=== PATIENT | female | born 1995 ===

== ENCOUNTER 2021-09-30 15:21 | Outpatient (CLI) | payer OTHER | END 2021-09-30 16:30 | disposition home or self-care (01) | LOC: PRENATAL 15:21 | PROVIDERS: ATTEND Obstetrics & Gynecology Maternal & Fetal Medicine | DX: O35.0XX0 Maternal care for (suspected) central nervous system malformation in fetus, not applicable or unspecified (principal); O35.3XX0 Maternal care for (suspected) damage to fetus from viral disease in mother, not applicable or unspecified; Z3A.21 21 weeks gestation of pregnancy ==

== ENCOUNTER 2021-12-29 13:13 | Inpatient (IN) | payer OTHER ==
[~2021-12-29] VITALS: Ht 149.9 cm; Wt 68.5 kg
[2021-12-29] MEDS ORDERED: PRENATAL CAPLE1 EAC1 PO (15:14)
== END 2022-01-03 11:05 | disposition home or self-care (01) | DRG 833 ==
LOC: LDR 13:13 → OB/GYN 12-31 11:17
PROVIDERS: ADMIT Obstetrics & Gynecology; ATTEND Obstetrics & Gynecology
PROC: 4A1HXCZ Monitoring of Products of Conception, Cardiac Rate, External Approach (ICD-10-PCS; principal; 2021-12-29)
PROC: BY4FZZZ Ultrasonography of Third Trimester, Single Fetus (ICD-10-PCS; 2021-12-29)
PROC: BU4CZZZ Ultrasonography of Uterus and Ovaries (ICD-10-PCS; 2021-12-29)
DX: O60.03 Preterm labor without delivery, third trimester (principal); O26.843 Uterine size-date discrepancy, third trimester; O36.8130 Decreased fetal movements, third trimester, not applicable or unspecified; Z3A.33 33 weeks gestation of pregnancy; Z20.822 Contact with and (suspected) exposure to COVID-19

== ENCOUNTER 2022-01-10 15:40 | Inpatient (IN) | payer OTHER ==
[~2022-01-10] VITALS: Ht 149.9 cm; Wt 67.1 kg
[~2022-01-10 15:40] MED LIST: PRENATAL CAPLE1 EAC1 PO
[2022-01-10] MEDS ORDERED: PRENATAL TABLE1 EAC3 PO (23:19)
== END 2022-01-14 10:15 | disposition home or self-care (01) | DRG 833 ==
LOC: LDR 15:40 → OB/GYN 01-12 12:45
PROVIDERS: ADMIT Obstetrics & Gynecology; ATTEND Obstetrics & Gynecology
PROC: 4A1HXCZ Monitoring of Products of Conception, Cardiac Rate, External Approach (ICD-10-PCS; principal; 2022-01-10)
DX: O60.03 Preterm labor without delivery, third trimester (principal); Z3A.33 33 weeks gestation of pregnancy; Z20.822 Contact with and (suspected) exposure to COVID-19

== ENCOUNTER 2022-01-17 14:11 | Inpatient (IN) | payer OTHER ==
[~2022-01-17] VITALS: Ht 149.9 cm; Wt 67.6 kg
[~2022-01-17 14:11] MED LIST changes: +PRENATAL TABLE1 EAC3 PO
[2022-01-17] MEDS ORDERED: PRENATAL TABLE1 EAC3 PO (14:39)
== END 2022-01-19 15:36 | disposition home or self-care (01) | DRG 807 ==
LOC: LDR 14:11 → OB/GYN 14:11
PROVIDERS: ADMIT Obstetrics & Gynecology; ATTEND Obstetrics & Gynecology
PROC: 10E0XZZ Delivery of Products of Conception, External Approach (ICD-10-PCS; principal; 2022-01-17)
PROC: 4A1HXCZ Monitoring of Products of Conception, Cardiac Rate, External Approach (ICD-10-PCS; 2022-01-17)
DX: O60.14X0 Preterm labor third trimester with preterm delivery third trimester, not applicable or unspecified (principal); Z37.0 Single live birth; Z3A.36 36 weeks gestation of pregnancy; Z20.822 Contact with and (suspected) exposure to COVID-19